=== PATIENT | female | born 1995 | race Two or more races ===

== ENCOUNTER 2021-05-30 20:14 | Emergency (ER) | payer BC ==
[~2021-05-30] VITALS: Ht 167.6 cm; Wt 106.4 kg
[2021-05-30] MEDS ORDERED: DEXAMETHASONE SOD PHOS 20 MG/5 ML VIAL. IM ONE (21:15)
[2021-05-30] MEDS ORDERED: PROCHLORPERAZINE 10 MG/2 ML VIAL. IM ONE (21:15)
[2021-05-30] MEDS ORDERED: diphenhydrAMINE HCL 25 MG CAPSULE PO ONE (21:15)
[2021-05-30 21:39] VITALS: BP 137/85
--- NOTE | 2021-05-30 21:57 | PHYS DOC ---
Past Medical History Past Medical History: Migraines Additional Past Medical Histor: PCOS Past Surgical History: Tonsillectomy Additional Past Surgical Histo: CYST REMOVED FROM NECK General Adult EDM: Chief Complaint: HEADACHE HPI: HPI: Patient is a 26 year old female with hx of migraine headache presented to the ED today complaining of a throbbing intermittent 8 out of 10 generalized headache, symptoms began yesterday. Patient denies any fever, denies any neck pain, reports previous history of migraine headache but states she feels this is worse. She states she had COVID19 2 weeks ago. She states she vomited x1 here in the ED. Denies any chance she is . She states she has tried taking Tylenol with no relief. Review of Systems: Review of Systems: Constitutional: Denies fever or chills. [] Eyes: Denies change in visual acuity. [] HENT: Denies nasal congestion or sore throat. [] Respiratory: Denies cough or shortness of breath. [] Cardiovascular: Denies chest pain or edema. [] GI: Reports vomiting x1. Denies abdominal pain, bloody stools or diarrhea. [] : Denies dysuria. [] Musculoskeletal: Denies back pain or joint pain. [] Integument: Denies rash. [] Neurologic: Reports headache, denies focal weakness or sensory changes. [] Psychiatric: Denies depression or anxiety. [] Heart Score: C/O Chest Pain: N/A Risk Factors: Risk Factors: DM, Current or recent (<one month) smoker, HTN, HLP, family history of CAD, obesity. Risk Scores: Score 0 - 3: 2.5% MACE over next 6 weeks - Discharge Home Score 4 - 6: 20.3% MACE over next 6 weeks - Admit for Clinical Observation Score 7 - 10: 72.7% MACE over next 6 weeks - Early Invasive Strategies Current Medications: Current Medications Medications (Trade) Dose Ordered Sig/Vonnie Start Time Stop Time Status Last Admin Dose Admin Dexamethasone Sodium Phosphate (Decadron) 10 mg 1X ONCE 05/30/21 21:15 05/30/21 21:16 DC 05/30/21 21:34 10 MG Diphenhydramine HCl (Benadryl) 25 mg 1X ONCE 05/30/21 21:15 05/30/21 21:16 DC 05/30/21 21:32 25 MG Prochlorperazine Edisylate (Compazine) 10 mg 1X ONCE 05/30/21 21:15 05/30/21 21:16 DC 05/30/21 21:33 10 MG Allergies: Allergies: Allergies Coded Allergies Type Severity Reaction Last Updated Verified No Known Drug Allergies 05/30/21 No Physical Exam: PE: Constitutional: Well developed, well nourished, no acute distress, non-toxic appearance. [] HENT: Normocephalic, atraumatic, bilateral external ears normal, oropharynx moist, no oral exudates, nose normal. [] Eyes: PERRLA, EOMI, conjunctiva normal, no discharge. [] Neck: Normal range of motion, no tenderness, supple, no stridor. [] Cardiovascular:Heart rate regular rhythm, no murmur [] Lungs & Thorax: Bilateral breath sounds clear to auscultation [] Abdomen: Bowel sounds normal, soft, no tenderness, no masses, no pulsatile masses. [] Skin: Warm, dry, no erythema, no rash. [] Back: No tenderness, no CVA tenderness. [] Extremities: No tenderness, no cyanosis, no clubbing, ROM intact, no edema. [] Neurologic: Alert and oriented X 3, normal motor function, normal sensory function, no focal deficits noted. Cranial nerves II through XII intact Psychologic: Affect normal, judgement normal, mood normal. [] Current Patient Data: Vital Signs: Vital Signs Date Time Temp Pulse Resp B/P (MAP) Pulse Ox O2 Delivery O2 Flow Rate FiO2 05/30/21 21:39 93 18 137/85 (102) 99 Room Air 05/30/21 20:49 98.6 98.6 EKG: EKG: [] Radiology/Procedures: Radiology/Procedures: []PROCEDURE: CT HEAD WO CONTRAST Exam: CT head INDICATION: Severe headache since last night TECHNIQUE: Sequential axial images through the head were obtained without the administration of IV contrast. Exposure: One or more of the following in the visualized dose reduction techniques were utilized for this examination: 1. Automated exposure control 2. Adjustment of the MA and/or KV according to patient size 3. Use of iterative of reconstructive technique Comparisons: None FINDINGS: No focal parenchymal lesion or hemorrhage is identified. There is no midline shift or sulcal effacement. No acute vascular territory infarction is identified. Meza-white distinction is preserved. The ventricular system is within normal limits without compression hydrocephalus. The basal cisterns are well maintained. The visualized portions of the paranasal sinuses and mastoid air cells are well- pneumatized. No acute fractures. IMPRESSION: No acute intracranial abnormality. Electronically signed by: Chelsy Escobar MD (05/30/2021 10:22 PM) [facility] DICTATED and SIGNED BY: CHELSY ESCOBAR MD DATE: 05/30/21 [id number] 0 Course & Med Decision Making: Course & Med Decision Making Pertinent Labs and Imaging studies reviewed. (See chart for details) This a 26-year-old female patient presented to the ED today with a headache that began yesterday hx of migraines but states this headache feels worse. CT of the head is negative for any acute findings. Patient was given Decadron, Benadryl and Compazine, feeling much better. Discharged home with Imitrex and Zofran, provided return precautions. Dragon Disclaimer: Dragon Disclaimer: This electronic medical record was generated, in whole or in part, using a voice recognition dictation system. Departure Departure Impression: Primary Impression: Vomiting Qualified Codes: R11.10 - Vomiting, unspecified Additional Impression: Migraine headache Qualified Codes: G43.009 - Migraine without aura, not intractable, without status migrainosus Disposition: 01 HOME / SELF CARE / HOMELESS Condition: STABLE Referrals: Carmina ROD MD (PCP) follow up next week Patient Instructions: Migraine Headache Additional Instructions: You were evaluated in the emergency room for a migraine headache. Take the prescribed medications as needed for your symptoms. Follow-up with your own doctor in 1 to 2 weeks Scripts Prochlorperazine Maleate (Compazine) 10 Mg Tablet 1 TAB PO Q8HRS, #20 TAB 0 Refills Prov: ERIKANNEJobCHER Saqib OPERATING ROOM AIDE 05/30/21 Sumatriptan Succinate (IMITREX) 50 Mg Tablet 1 TAB PO UD, #9 TAB 1 Refill Take 1 tablet at the beginning of your symptoms or repeat 1 more tablet in 2 hours if symptoms persist. Do not take more than 2 tablets per 24 hours Prov: SCOTTCHER Saqib OPERATING ROOM AIDE 05/30/21 CHER CHAVEZ OPERATING ROOM AIDE May 30, 2021 21:57
--- NOTE | 2021-05-30 22:25 | RAD ---
Exam: CT head INDICATION: Severe headache since last night TECHNIQUE: Sequential axial images through the head were obtained without the administration of IV co ntrast. Exposure: One or more of the following in the visualized dose reduction techniques were utilized for this examination: 1. Automated exposure control 2. Adjustment of the MA and/or KV according to patient size 3. Use of iterative of reconstructive technique Comparisons: None FINDINGS: No focal parenchymal lesion or hemorrhage is identified. There is no midline shift or sulcal effaceme nt. No acute vascular territory infarction is identified. Meza-white distinction is preserved. The ventricular system is within normal limits without compression hydrocephalus. The basal cisterns are well maintained. The visualized portions of the paranasal sinuses and mastoid air cells are well-pneumatized. No acute fractures. IMPRESSION: No acute intracranial abnormality. Electronically signed by: Chelsy Gonzalez MD (05/30/2021 10:22 PM) [facility]
[2021-05-30] MEDS ORDERED: PROC10TA57 PO (22:48)
[2021-05-30] MEDS ORDERED: SUMA50TA3 PO (22:48)
== END 2021-05-30 22:55 | disposition home or self-care (01) ==
LOC: ER 20:14
DX: G43.009 Migraine without aura, not intractable, without status migrainosus (principal); R11.10 Vomiting, unspecified
CPT/HCPCS: 70450; 81025; 96372; 99284; J0780; J1100; Q0163